=== PATIENT | male | born 1940 | race Caucasian/White ===

== ENCOUNTER 2020-08-13 17:41 | Inpatient (IN) | payer BC, MEDICARE ==
--- NOTE | 2020-08-13 17:59 | PDOC.HHP ---
Hospitalist HPI persistent cough History of Present Illness: Patient is a 80-year-old male with a past medical history of obstructive sleep apnea, [id number] diabetes mellitus, gout and BPH. He is a direct admit from [facility] where he was hospitalized since August 09 after he presented with cough and hypoxia. He has a recent diagnosis of COVID-19 dx on 06/05/2020. He was never hospitalized but did relatively well with outpatient therapy, which included steroid therapy and other regimen including Trelegy. He is not very specific on this point. He states that he does not have a formal diagnosis of COPD. He did well for the most part until recently. His symptoms improved except for persistent cough. He is reporting a cough which comes on few hours after a meal. He progressively started getting shortness of breath. He decided to go to [facility] on Aug 09 as his O2 saturation was persistently in the mid 80's. Work-up at [facility] revealed multifocal pneumonia. Sputum culture yielded an positive cocci. Pulmonary embolism was ruled out. He tested negative for COVID-19 this time. Due to lack of improvement, he was transferred here for pulmonary evaluation. ED Course: N/A Allergies/Adverse Reactions: Allergy/AdvReac Type Severity Reaction Status Date / Time No Known Drug Allergies Allergy Verified 08/13/20 18:08 Past History: PMHx: PSHx: FHx: Social: Hospitalist Exam General Appearance: awake alert General - other findings: Mild distress Eye: anicteric sclera ENT: normocephalic atraumatic ENT - other findings: Nasal cannula in place Neck: supple Heart: RRR, no murmur, no gallops, no rubs, normal peripheral pulses Respiratory: no wheezes, no ronchi Gastrointestinal: soft, non-tender, non-distended Extremities: no clubbing, no edema Neurological: cranial nerve grossly intact Psychiatric: normal affect, normal behavior Hospitalist H&P A/P (1) Acute hypoxemic respiratory failure Code(s): J96.01 - ACUTE RESPIRATORY FAILURE WITH HYPOXIA Status: Acute (2) Multifocal pneumonia Code(s): J18.9 - PNEUMONIA, UNSPECIFIED ORGANISM Status: Acute (3) Persistent cough for 3 weeks or longer Code(s): R05 - COUGH Status: Acute (4) Obstructive sleep apnea Code(s): G47.33 - OBSTRUCTIVE SLEEP APNEA (ADULT) (PEDIATRIC) Status: Acute (5) Type II diabetes mellitus Status: Acute (6) Gout Code(s): M10.9 - GOUT, UNSPECIFIED Status: Acute (7) BPH (benign prostatic hyperplasia) Code(s): N40.0 - BENIGN PROSTATIC HYPERPLASIA WITHOUT LOWER URINRY TRACT SYMP Status: Acute Plan: Assessment Mr. Hickey is a 80-year-old male with history of obstructive sleep apnea and a recent diagnosis of COVID-19 who presents as a direct admit from [facility] where he was hospitalized for persistent cough, and hypoxia. He is here for Pulmonary evaluation. CT of the chest showed diffuse infiltrate with no focal consolidations or suggestion of postobstructive suggestion of airway obstruction. Additionally, chart review revealed that he was seen in this ER back in 2011 for nasal congestion and persistent cough. Bronchitis was considered at the time. Acute hypoxemic respiratory failure Multifocal pneumonia Dysphagia Obstructive sleep apnea Type 2 diabetes mellitus PLAN: Admit inpatient with telemetry and continous pulse ox Supplemental O2 via NC Check for basic labs Follow up 2-D echo to assess for hypoxia Start levofloxacin along with DuoNebs Procalcitonin to guide abx de-escalation Pulmonary also consulted for persistent cough and hypoxia STRATEGIC PLANNING SPECIALIST to assess dysphagia and aspiration PPI for GI ppx Insulin sliding scale. Check for HbA1c DVT ppx with lovenox Will resume home meds once reconciled
[2020-08-13] MEDS ORDERED: Dextrose 5% in Water 1,000 ML IV PRN (18:19)
[2020-08-13] MEDS ORDERED: Dextrose 50% Abboject 50 ML SYRINGE SLOW IVP PRN (18:19)
[2020-08-13] MEDS ORDERED: Pantoprazole 40 MG VIAL IVP SCH (18:30)
[2020-08-13 19:38] LABS: #Lymphocytes 0.7 thou/uL (1.20-3.40); #Monocytes 0.4 thou/uL (0.11-0.59); #Neutrophils 9.3 thou/uL (1.40-6.50); %Basophils 0.1 % (0.0-1.0); %Eosinophils 0.2 % (0.0-10.0); %Lymphocytes 6.7 % (21.0-51.0); %Monocytes 3.9 % (0.0-10.0); %Neutrophils 89.1 % (42.0-75.0); Hemoglobin 10.6 g/dL (14.0-18.0); Mean Corpuscular HGB CONC 33.9 g/dL (32.0-36.0); Mean Corpuscular Hemoglobin 30.7 pg (27.0-31.0); Mean Corpuscular Volume 90.5 fL (78.0-98.0); Mean Platelet Volume 7.3 fL (7.4-10.4); Platelet Count 302 thou/uL (130-400); RBC Distribution Width 12.2 % (11.5-14.5); Red Blood Cell (RBC) Count 3.44 mill/uL (4.70-6.10); White Blood Cell (WBC) Count 10.4 thou/uL (4.8-10.8)
[2020-08-13 20:03] LABS: Lactic Acid 2.3 mmol/L (0.5-2.2)
[2020-08-13 20:06] LABS: Anion Gap 19 mmol/L (10-20); BUN (Urea Nitrogen) 20 mg/dL (8.4-25.7); Calc. Creatinine Clearance 78 mL/min (70-130); Carbon Dioxide 22 mmol/L (23-31); Chloride 98 mmol/L (98-107); Glucose 207 mg/dL (83-110); Magnesium 1.7 mg/dL (1.6-2.6); Phosphorus 3.6 mg/dL (2.3-4.7); Potassium 4.7 mmol/L (3.5-5.1); Sodium 134 mmol/L (136-145)
[2020-08-13] MEDS: Enoxaparin Sodium 40 MG/0.4 ML SYRINGE SC SCH (20:53)
[2020-08-13] MEDS ORDERED: HumaLOG 300 UNITS/3 ML VIAL SC PRN (21:09)
[2020-08-13] MEDS ORDERED: Temazepam 15 MG CAP PO SCH (21:30)
[2020-08-14 08:43] LABS: Lactic Acid 1.2 mmol/L (0.5-2.2)
[2020-08-14] MEDS: Aspirin 325 mg Enteric Coated Tablet PO SCH (09:07)
[2020-08-14] MEDS: Atorvastatin Calcium 40 MG TAB PO SCH (09:07)
[2020-08-14] MEDS: Tamsulosin HCl 0.4 MG CAP PO SCH (09:07)
[2020-08-14] MEDS: NIFEdipine XL 30 MG TAB PO SCH (09:07)
[2020-08-14] MEDS: Allopurinol 100 MG TAB PO SCH (09:07)
[2020-08-14] MEDS: Pantoprazole 40 MG VIAL IVP SCH (09:08)
--- NOTE | 2020-08-14 11:22 | PDOC.HOSPP ---
- Subjective Encounter Date: 08/14/20 Subjective: Acute events overnight. Patient still on supplemental oxygen via nasal cannula, currently at 4 L. He is getting easily winded with minimal exertion. However, no significant change since admission. - Objective Vital Signs & Weight: Vital Signs (12 hours) Temp Pulse Resp BP Pulse Ox 08/14/20 10:18 144/89 H 95 08/14/20 08:55 98.1 F 77 24 H 178/81 H 91 L 08/14/20 03:24 98.6 F 72 20 172/85 H 96 08/14/20 00:00 74 Weight Weight 201 lb I&O: 08/13/20 08/14/20 08/15/20 06:59 06:59 06:59 Intake Total 480 Output Total 600 Balance -120 Result Diagrams: 08/13/20 19:04 08/13/20 19:05 Additional Labs: Accuchecks 08/14/20 08/13/20 05:30 20:54 POC Glucose 88 195 H Hospitalist ROS - Medication Medications: Active Medications Generic Name Dose Route Start Last Admin Trade Name Misaelq PRN Reason Stop Dose Admin Allopurinol 100 mg 08/14/20 09:00 08/14/20 09:07 Allopurinol 100 Mg Tab PO 100 mg DAILY WILLIAMS Administration Aspirin 325 mg 08/14/20 09:00 08/14/20 09:07 Aspirin 325 Mg Enteric Coated Tablet PO 325 mg DAILY WILLIAMS Administration Atorvastatin Calcium 40 mg 08/14/20 09:00 08/14/20 09:07 Atorvastatin Calcium 40 Mg Tab PO 40 mg DAILY WILLIAMS Administration Enoxaparin Sodium 40 mg 08/13/20 21:00 08/13/20 20:53 Enoxaparin Sodium 40 Mg/0.4 Ml Syringe SC 40 mg 2100 WILLIAMS Administration Levofloxacin 750 mg/ Device 150 mls @ 100 mls/hr 08/13/20 20:00 08/13/20 20:54 IVPB 150 mls Q24HR WILLIAMS Administration Nifedipine 30 mg 08/14/20 09:00 08/14/20 09:07 Nifedipine Xl 30 Mg Tab PO 30 mg DAILY WILLIAMS Administration Pantoprazole Sodium 40 mg 08/14/20 09:00 08/14/20 09:08 Pantoprazole 40 Mg Vial IVP 40 mg DAILY WILLIAMS Administration Sodium Chloride 10 ml 08/14/20 09:00 08/14/20 09:09 Flush - Normal Saline 10 Ml Syringe IVF 10 ml Q12HR WILLIAMS Administration Tamsulosin HCl 0.4 mg 08/14/20 09:00 08/14/20 09:07 Tamsulosin Hcl 0.4 Mg Cap PO 0.4 mg DAILY WILLIAMS Administration Hospitalist Exam Vitals: Vital Signs (12 hours) Temp Pulse Resp BP Pulse Ox 08/14/20 10:18 144/89 H 95 08/14/20 08:55 98.1 F 77 24 H 178/81 H 91 L 08/14/20 03:24 98.6 F 72 20 172/85 H 96 08/14/20 00:00 74 Weight Weight 201 lb General Appearance: awake alert General - other findings: Mild respiratory distress Eye: anicteric sclera ENT: normocephalic atraumatic Neck: supple Respiratory: CTAB, no wheezes, no rales, no ronchi Gastrointestinal: soft, non-tender, non-distended, normal bowel sounds Extremities: no clubbing, no edema Neurological: cranial nerve grossly intact Psychiatric: normal affect, normal behavior Hosp A/P (1) Acute hypoxemic respiratory failure Code(s): J96.01 - ACUTE RESPIRATORY FAILURE WITH HYPOXIA Status: Acute (2) Multifocal pneumonia Code(s): J18.9 - PNEUMONIA, UNSPECIFIED ORGANISM Status: Acute (3) Persistent cough for 3 weeks or longer Code(s): R05 - COUGH Status: Acute (4) Obstructive sleep apnea Code(s): G47.33 - OBSTRUCTIVE SLEEP APNEA (ADULT) (PEDIATRIC) Status: Acute (5) Type II diabetes mellitus Status: Acute (6) Gout Code(s): M10.9 - GOUT, UNSPECIFIED Status: Acute (7) BPH (benign prostatic hyperplasia) Code(s): N40.0 - BENIGN PROSTATIC HYPERPLASIA WITHOUT LOWER URINRY TRACT SYMP Status: Acute - Plan Assessment Mr. Hickey is a 80-year-old male with history of obstructive sleep apnea and a recent diagnosis of COVID-19 who presents as a direct admit from [facility] where he was hospitalized for persistent cough, and hypoxia. He is here for Pulmonary evaluation. CT of the chest showed diffuse infiltrate with no focal consolidations or suggestion of postobstructive suggestion of airway obstruction. Additionally, chart review revealed that he was seen in this ER back in 2011 for nasal congestion and persistent cough. Bronchitis was considered at the time. Acute hypoxemic respiratory failure Multifocal pneumonia Dysphagia Obstructive sleep apnea Type 2 diabetes mellitus - A1c 7.0 PLAN: Continue supplemental O2 via NC Follow up 2-D echo to assess for alternative causes of hypoxia DC levofloxacin given negative procalcitonin Continue DuoNebs Pulmonary consulted for persistent cough and hypoxia SALES SUPPORT REP to assess dysphagia and aspiration PPI for GI ppx Insulin sliding scale. DVT ppx with lovenox
--- NOTE | 2020-08-14 12:50 | RAD ---
XR Chest 1 View Portable HISTORY: Shortness of breath. Positive Covid. COMPARISON: 07/20/2020 exam. FINDINGS: Heart size is enlarged. There are atherosclerotic changes of the aorta. Parenchymal lung ch anges appear slightly more prominent than on the prior examination although the difference is minimal and probably largely related to slightly different technique and inspiration. IMPRESSION: Essentially stable chest bilateral lung infiltrates aren't relatively stable given differ ences in technique.
[2020-08-14] MEDS: Temazepam 15 MG CAP PO SCH (20:09)
[2020-08-14] MEDS: Enoxaparin Sodium 40 MG/0.4 ML SYRINGE SC SCH (20:09)
[2020-08-15] MEDS: Benzonatate 100 MG CAP PO PRN ×2 (03:12→09:17)
--- NOTE | 2020-08-15 06:28 | CON ---
DATE OF CONSULTATION: HISTORY OF PRESENT ILLNESS: Mr. Hickey is a pleasant 80-year-old male, who has been over at [facility] for the past few days. He says he had COVID last year starting at the end of May and after he had recovered completely from COVID, started having issues with cough and shortness of breath. He has been imaged 3 times he says and has been told he has pneumonia each time. PAST MEDICAL HISTORY: Remarkable for; 1. Sleep apnea. 2. Diabetes. 3. Hypertension. 4. Lipid disorder. He says he has never had any cardiac issues. FAMILY HISTORY: Negative for lung disease in early age. SOCIAL HISTORY: He is employed at [employer], he is still working. REVIEW OF SYSTEMS: Otherwise negative. PHYSICAL EXAMINATION: GENERAL: He is in no distress. VITAL SIGNS: Pulse is 80, respiratory rate is 18. HEAD AND NECK: Unremarkable. LUNGS: Remarkable for diffuse crackles. HEART: Regular rhythm. S1 and S2 are normal. ABDOMEN: Soft and nontender. EXTREMITIES: Without clubbing, cyanosis, or edema. DIAGNOSTIC STUDIES: No images available to review since these were all done at [facility]. IMPRESSION: Interstitial lung disease of unclear etiology. It is unlikely that he has been infected by a bacterial organism for this period of time. He is not immunocompromised. We really need to review images that were done at the outside facility. We will order a chest x-ray, so I at least have that to look at. Hypersensitivity pneumonitis panel will be ordered. Fungal antibody panel will be ordered. Antineutrophil cytoplasmic antibody panel and TEVIN and a rheumatoid arthritis panel, although all of these will most likely be negative. We will follow. He does not appear acutely ill. Job ID: [id number]
[2020-08-15] MEDS: Allopurinol 100 MG TAB PO SCH (09:42)
[2020-08-15] MEDS: NIFEdipine XL 30 MG TAB PO SCH (09:42)
[2020-08-15] MEDS: Aspirin 325 mg Enteric Coated Tablet PO SCH (09:42)
[2020-08-15] MEDS: Atorvastatin Calcium 40 MG TAB PO SCH (09:43)
[2020-08-15] MEDS: Tamsulosin HCl 0.4 MG CAP PO SCH (09:43)
[2020-08-15] MEDS: methylPREDNISolone Sod Succ/PF 125 MG/2 ML VIAL IVP SCH (09:43)
[2020-08-15 09:45] LABS: INR-International Normal Ratio 1.3; Prothrombin Time 16.1 sec (12.0-14.7)
[2020-08-15] MEDS: Pantoprazole 40 MG VIAL IVP SCH (09:45)
--- NOTE | 2020-08-15 10:39 | CT ---
EXAM: CT Chest High Resolution PROVIDED CLINICAL HISTORY: Interstitial lung disease. Patient diagnosed with Covid pneumonia on June 07, 2020. Patient compl ains of chronic cough and shortness of breath. COMPARISON: None FINDINGS: There are groundglass densities seen throughout the lungs bilaterally greater on the right. There are chronic interstitial lung changes predominantly involving each lung base with associated bronchiectasis at each lung base and in the right middle lobe and to a lesser extent in the upper lob es. No consolidation or pleural effusion is identified. The heart is enlarged. Small pericardial effusion is present. Prominent vascular calcifications are s een in the coronary arteries as well as in the thoracic aorta. No enlarged lymph nodes are seen within the mediastinum on this nonenhanced CT scan exam. The visualized upper abdomen demonstrates calcification in the limited visualized gallbladder related to cholelithiasis. A 1.9 cm right adrenal nodule is present which does not demonstrate an attenuation coefficient compat ible with an adrenal adenoma on this examination. IMPRESSION: 1. Right adrenal nodule which cannot be characterized as an adrenal adenoma. CT scan abdomen with and without IV contrast including washout imaging is recommended following the adrenal mass protocol. MRI abdomen could also be performed for further characterization. 2. Groundglass densities within the lungs bilaterally greater on the right with associated chronic in terstitial lung changes and bronchiectasis. Findings could be sequela of chronic changes related to Covid pneumonia given patient's clinical history. No consolidation or pleural fluid is seen. 3. Cardiomegaly and trace pericardial effusion. 4. Extensive vascular calcifications. 5. Cholelithiasis.
--- NOTE | 2020-08-15 11:10 | PRG ---
DATE OF SERVICE: 08/15/2020 SUBJECTIVE: Mr. Hickey is clinically stable. OBJECTIVE: VITAL SIGNS: He is still mildly tachypneic at rest with respiratory rate in the low 20s. He is afebrile. Heart rate in 80s, oximetry is 96% on 4 L. LUNGS: Still remarkable for crackles. HEART: Regular rate and rhythm. ABDOMEN: Soft. IMPRESSION AND PLAN: Interstitial lung disease of unclear etiology. The [facility] films have not been loaded into the [employer] system, so I cannot view these. The disc is not on the unit. I will order a high-resolution CT of his chest and perhaps we can determine whether or not we need a lung biopsy. Hopefully, we will not. I did start him on steroids after his blood work today. Job ID: [id number]
[2020-08-15] MEDS: HumaLOG 300 UNITS/3 ML VIAL SC PRN ×2 (11:33→17:55)
--- NOTE | 2020-08-15 12:03 | PQF ---
Dear Dr. Alvarez Date: 08/15/20 Please exercise your independent, professional judgment in responding to the clarification form. Clinical indicators are provided on the bottom of this form for your review. Please check appropriate box(es): [ ] Aspiration Pneumonia [ ] Empirically treating Gram Negative Pneumonia [ ] Simple Pneumonia [ X ] Pneumonia of unknown etiology [ ] Other diagnosis [ ] Unable to determine In addition, please specify: Present on Admission (POA): [ ] Yes [ ] No [ ] Unable to determine For continuity of documentation, please document condition throughout progress notes and discharge summary. Thank You. To be completed by CDI/Coding staff for physician review: CLINICAL INDICATORS - SIGNS / SYMPTOMS / LABS / RESULTS AND LOCATION IN MR H&P ([facility]): "HE IS REPORTING A COUGH WHICH COMES ON FEW HOURS AFTER A MEAL." CONSULTATION NOTE ([facility]) 08/14: "INTERSTITIAL LUNG DISEASE OF UNCLEAR ETIOLOGY" CHEST XRAY 08/14: "BILATERAL LUNG INFILTRATES AREN'T RELATIVELY STABLE GIVEN DIFFERENCES IN TECHNIQUE." RISK FACTORS / RESULTS AND LOCATION IN MR ACUTE RESPIRATORY FAILURE MULTIFOCAL PNEUMONIA PERSISTENT COUGH X 3 WEEKS OR LONGER (ST ASSESMENT 08/14) "SPUTUM YIELDED A POSITIVE COCCI" [place] [facility] [place] AT [facility] (H&P) ASSESSMENT: ORAL PHASE DEFICITS: "MILD FUNCTIONAL IMPAIRMENT" PHARYNGEAL PHASE: "MILD FUNCTIONAL IMPAIRMENT" TREATMENTS / RESULTS AND LOCATION IN MR RECOMMENDATIONS PER ST (IE, SIT FULLY UPRIGHT, REMAIN SITTING 30 MINUTES AFTER A MEAL, SMALL BITES AND SIPS, ALTERNATE BITES, AND SIPS, SLOW PACING--SEE ST NOTE 08/14) NURSING TO MONITOR FOR S/S OF COUGHING/ASPIRATION CONTINUOUS PULSE OX (H&P) SUPPLEMENTAL OXYGEN (H&P) DUNEBS (H&P) LEVAQUIN (08/13-PRESENT) SOLUMEDROL ((08/15-PRESENT) CDS Signature: Sangeetha Callejas RN Phone #: [phone] Date: 08/15/20 This is a permanent part of the Medical Record [facility]
--- NOTE | 2020-08-15 15:47 | PDOC.HOSPP ---
- Subjective Encounter Date: 08/15/20 Subjective: No acute events overnight. Patient is on 4 L of oxygen via nasal cannula and is comfortable on these settings. - Objective Vital Signs & Weight: Vital Signs (12 hours) Temp Pulse Resp BP Pulse Ox 08/15/20 15:41 96 08/15/20 15:02 97.8 F 99 24 H 123/74 96 08/15/20 11:27 98.1 F 100 24 H 143/83 H 95 08/15/20 08:08 98.1 F 87 18 128/74 96 Weight Weight 201 lb I&O: 08/14/20 08/15/20 08/16/20 06:59 06:59 06:59 Intake Total 480 1400 Output Total 600 1525 Balance -120 -125 Result Diagrams: 08/13/20 19:04 08/13/20 19:05 Additional Labs: Accuchecks 08/15/20 08/15/20 08/14/20 10:31 05:24 20:41 POC Glucose 160 H 109 H 159 H Hospitalist ROS - Medication Medications: Active Medications Generic Name Dose Route Start Last Admin Trade Name Freq PRN Reason Stop Dose Admin Allopurinol 100 mg 08/14/20 09:00 08/15/20 09:42 Allopurinol 100 Mg Tab PO 100 mg DAILY WILLIAMS Administration Aspirin 325 mg 08/14/20 09:00 08/15/20 09:42 Aspirin 325 Mg Enteric Coated Tablet PO 325 mg DAILY WILLIAMS Administration Atorvastatin Calcium 40 mg 08/14/20 09:00 08/15/20 09:43 Atorvastatin Calcium 40 Mg Tab PO 40 mg DAILY WILLIAMS Administration Benzonatate 100 mg 08/15/20 02:38 08/15/20 09:17 Benzonatate 100 Mg Cap PO 100 mg TIDPRN PRN Administration Cough Enoxaparin Sodium 40 mg 08/13/20 21:00 08/14/20 20:09 Enoxaparin Sodium 40 Mg/0.4 Ml Syringe SC 40 mg 2100 WILLIAMS Administration Levofloxacin 750 mg/ Device 150 mls @ 100 mls/hr 08/13/20 20:00 08/14/20 20:09 IVPB 150 mls Q24HR WILLIAMS Administration Insulin Human Lispro 0 units 08/13/20 18:19 08/15/20 11:33 Humalog 300 Units/3 Ml Vial SC 2 unit .MILD SLIDING SCALE PRN Administration Mild Correctional Scale Methylprednisolone Sodium Succinate 80 mg 08/15/20 09:00 08/15/20 09:43 Methylprednisolone Sod Succ/Pf 125 Mg/2 Ml Vial IVP 80 mg DAILY WILLIAMS Administration Nifedipine 30 mg 08/14/20 09:00 08/15/20 09:42 Nifedipine Xl 30 Mg Tab PO 30 mg DAILY WILLIAMS Administration Pantoprazole Sodium 40 mg 08/14/20 09:00 08/15/20 09:45 Pantoprazole 40 Mg Vial IVP 40 mg DAILY WILLIAMS Administration Sodium Chloride 10 ml 08/14/20 09:00 08/15/20 09:43 Flush - Normal Saline 10 Ml Syringe IVF 10 ml Q12HR WILLIAMS Administration Tamsulosin HCl 0.4 mg 08/14/20 09:00 08/15/20 09:43 Tamsulosin Hcl 0.4 Mg Cap PO 0.4 mg DAILY WILLIAMS Administration Temazepam 30 mg 08/14/20 21:00 08/14/20 20:09 Temazepam 15 Mg Cap PO 30 mg HS WILLIAMS Administration Hospitalist Exam Vitals: Vital Signs (12 hours) Temp Pulse Resp BP Pulse Ox 08/15/20 15:41 96 08/15/20 15:02 97.8 F 99 24 H 123/74 96 08/15/20 11:27 98.1 F 100 24 H 143/83 H 95 08/15/20 08:08 98.1 F 87 18 128/74 96 Weight Weight 201 lb General Appearance: NAD, awake alert Eye: anicteric sclera ENT: normocephalic atraumatic Neck: supple Heart: RRR, no murmur, no gallops, no rubs Respiratory: no wheezes, no ronchi Gastrointestinal: soft, non-tender, non-distended Extremities: no clubbing, no edema Neurological: cranial nerve grossly intact Musculoskeletal: normal tone, normal strength Psychiatric: normal affect, normal behavior Hosp A/P (1) Acute hypoxemic respiratory failure Code(s): J96.01 - ACUTE RESPIRATORY FAILURE WITH HYPOXIA Status: Acute (2) Multifocal pneumonia Code(s): J18.9 - PNEUMONIA, UNSPECIFIED ORGANISM Status: Acute (3) Persistent cough for 3 weeks or longer Code(s): R05 - COUGH Status: Acute (4) Obstructive sleep apnea Code(s): G47.33 - OBSTRUCTIVE SLEEP APNEA (ADULT) (PEDIATRIC) Status: Acute (5) Type II diabetes mellitus Status: Acute (6) Gout Code(s): M10.9 - GOUT, UNSPECIFIED Status: Acute (7) BPH (benign prostatic hyperplasia) Code(s): N40.0 - BENIGN PROSTATIC HYPERPLASIA WITHOUT LOWER URINRY TRACT SYMP Status: Acute - Plan Assessment Mr. Hickey is a 80-year-old male with history of obstructive sleep apnea and a recent diagnosis of COVID-19 who presented as a direct admit from [facility] where he was hospitalized for persistent cough, and hypoxia. He is here for Pulmonary evaluation. CT of the chest showed diffuse infiltrate with no focal consolidations or suggestion of postobstructive suggestion of airway obstruction. Fungal and rheumatologic work-up is underway as initiated by pulmonary. ESR was elevated at 88 Acute hypoxemic respiratory failure Multifocal pneumonia Dysphagia Obstructive sleep apnea Type 2 diabetes mellitus - A1c 7.0 PLAN: Started on steroids per pulmonary Follow-up high-resolution CT to assess if a biopsy will be needed Continue supplemental O2 via NC Follow-up ANCA, TEVIN and rheumatoid factor ordered by pulmonary Continue DuoNebs as needed HELP DESK CONSULTANT recommends outpatient modified barium swallow studies dysphagia PPI for GI ppx Insulin sliding scale. DVT ppx with lovenox
[2020-08-15] MEDS: Enoxaparin Sodium 40 MG/0.4 ML SYRINGE SC SCH (20:00)
[2020-08-15] MEDS: Temazepam 15 MG CAP PO SCH (20:00)
[2020-08-16] MEDS: Allopurinol 100 MG TAB PO SCH (09:12)
[2020-08-16] MEDS: Aspirin 325 mg Enteric Coated Tablet PO SCH (09:12)
[2020-08-16] MEDS: Atorvastatin Calcium 40 MG TAB PO SCH (09:12)
[2020-08-16] MEDS: NIFEdipine XL 30 MG TAB PO SCH (09:12)
[2020-08-16] MEDS: methylPREDNISolone Sod Succ/PF 125 MG/2 ML VIAL IVP SCH (09:13)
[2020-08-16] MEDS: Pantoprazole 40 MG VIAL IVP SCH (09:13)
[2020-08-16] MEDS: Tamsulosin HCl 0.4 MG CAP PO SCH (09:14)
--- NOTE | 2020-08-16 13:24 | PRG ---
DATE OF SERVICE: 08/16/2020 Mr. Hickey was interviewed for approximately 20 minutes again today. Reviewing his events, he recovered from his COVID infection and then about a week later, he started with a cough. I reviewed his high-resolution CT from yesterday. Given that he has never had any respiratory symptoms in his life, my best guess is that what we are dealing with clinically and radiographically is a late phase COVID pneumonitis/inflammatory reaction. He is currently afebrile. He says he feels 100% better than he felt when he arrived. OBJECTIVE: LUNGS: Still remarkable for crackles. HEART: Regular rate and rhythm. ABDOMEN: Soft. There is no new lab other than blood glucoses, which are still under control for the most part even though he is on IV steroids. I really cannot see recommending bronchoscopy lavage or lung biopsies or even a surgical lung biopsy at this point given the clinical history. I will switch him to prophylactic dose Eliquis. We will keep him on IV steroids again for now. Hopefully, his gas exchange will continue to improve with his clinical improvement. We may end up having to prescribe oxygen for the house as well as get him a nebulizer. He was getting nebulized treatments at [facility] and said it helped relax him and he felt like he was breathing better after that, so we will start that. He does have some bronchiectasis on the CAT scan and in theory nebulized therapy may help mobilize secretions. I would anticipate that he will need oxygen, it might be reasonable to start setting this up. Job ID: [id number]
--- NOTE | 2020-08-16 13:40 | PDOC.HOSPP ---
- Subjective Encounter Date: 08/16/20 Subjective: No acute events overnight. Yoli Perlradha started by pulmonary team for cough - Objective Vital Signs & Weight: Vital Signs (12 hours) Temp Pulse Resp BP Pulse Ox 08/16/20 12:46 98.5 F 100 24 H 116/74 91 L 08/16/20 09:12 91 08/16/20 07:40 98.4 F 91 25 H 125/73 94 L 08/16/20 04:32 98.4 F 82 19 117/67 96 Weight Weight 201 lb I&O: 08/15/20 08/16/20 08/17/20 06:59 06:59 06:59 Intake Total 1400 240 Output Total 1525 750 Balance -125 -510 Result Diagrams: 08/13/20 19:04 08/13/20 19:05 Additional Labs: Accuchecks 08/16/20 08/16/20 08/15/20 11:03 05:26 20:45 POC Glucose 179 H 151 H 243 H 08/15/20 16:39 POC Glucose 185 H Hospitalist ROS - Medication Medications: Active Medications Generic Name Dose Route Start Last Admin Trade Name Freq PRN Reason Stop Dose Admin Allopurinol 100 mg 08/14/20 09:00 08/16/20 09:12 Allopurinol 100 Mg Tab PO 100 mg DAILY WILLIAMS Administration Aspirin 325 mg 08/14/20 09:00 08/16/20 09:12 Aspirin 325 Mg Enteric Coated Tablet PO 325 mg DAILY WILLIAMS Administration Atorvastatin Calcium 40 mg 08/14/20 09:00 08/16/20 09:12 Atorvastatin Calcium 40 Mg Tab PO 40 mg DAILY WILLIAMS Administration Levofloxacin 750 mg/ Device 150 mls @ 100 mls/hr 08/13/20 20:00 08/15/20 19:59 IVPB 150 mls Q24HR WILLIAMS Administration Insulin Human Lispro 0 units 08/13/20 18:19 08/15/20 17:55 Humalog 300 Units/3 Ml Vial SC 2 unit .MILD SLIDING SCALE PRN Administration Mild Correctional Scale Methylprednisolone Sodium Succinate 80 mg 08/15/20 09:00 08/16/20 09:13 Methylprednisolone Sod Succ/Pf 125 Mg/2 Ml Vial IVP 80 mg DAILY WILLIAMS Administration Nifedipine 30 mg 08/14/20 09:00 08/16/20 09:12 Nifedipine Xl 30 Mg Tab PO 30 mg DAILY WILLIAMS Administration Pantoprazole Sodium 40 mg 08/14/20 09:00 08/16/20 09:13 Pantoprazole 40 Mg Vial IVP 40 mg DAILY WILLIAMS Administration Sodium Chloride 10 ml 08/14/20 09:00 08/16/20 09:15 Flush - Normal Saline 10 Ml Syringe IVF 10 ml Q12HR WILLIAMS Administration Tamsulosin HCl 0.4 mg 08/14/20 09:00 08/16/20 09:14 Tamsulosin Hcl 0.4 Mg Cap PO 0.4 mg DAILY WILLIAMS Administration Temazepam 30 mg 08/14/20 21:00 08/15/20 20:00 Temazepam 15 Mg Cap PO 30 mg HS WILLIAMS Administration Hospitalist Exam Vitals: Vital Signs (12 hours) Temp Pulse Resp BP Pulse Ox 08/16/20 12:46 98.5 F 100 24 H 116/74 91 L 08/16/20 09:12 91 08/16/20 07:40 98.4 F 91 25 H 125/73 94 L 08/16/20 04:32 98.4 F 82 19 117/67 96 Weight Weight 201 lb General Appearance: NAD, awake alert Eye: anicteric sclera ENT: normocephalic atraumatic Neck: supple Heart: RRR, no murmur, no gallops, no rubs Respiratory: CTAB, no wheezes, no rales, no ronchi Gastrointestinal: soft, non-tender, non-distended Extremities: no clubbing, no edema Neurological: cranial nerve grossly intact Psychiatric: normal affect, normal behavior Hosp A/P (1) Acute hypoxemic respiratory failure Code(s): J96.01 - ACUTE RESPIRATORY FAILURE WITH HYPOXIA Status: Acute (2) Multifocal pneumonia Code(s): J18.9 - PNEUMONIA, UNSPECIFIED ORGANISM Status: Acute (3) Persistent cough for 3 weeks or longer Code(s): R05 - COUGH Status: Acute (4) Obstructive sleep apnea Code(s): G47.33 - OBSTRUCTIVE SLEEP APNEA (ADULT) (PEDIATRIC) Status: Acute (5) Type II diabetes mellitus Status: Acute (6) Gout Code(s): M10.9 - GOUT, UNSPECIFIED Status: Acute (7) BPH (benign prostatic hyperplasia) Code(s): N40.0 - BENIGN PROSTATIC HYPERPLASIA WITHOUT LOWER URINRY TRACT SYMP Status: Acute - Plan Assessment Mr. Hickey is a 80-year-old male with history of obstructive sleep apnea and a recent diagnosis of COVID-19 who presented as a direct admit from [facility] where he was hospitalized for persistent cough, and hypoxia. They ruled out pulmonary embolism during that hospitalization. 2D echo done here within normal limits. He has no signs of congestive heart failure. He was transferred for pulmonary evaluation. CT of the chest showed diffuse infiltrate with no focal consolidations or suggestion of postobstructive suggestion of airway obstruction. Fungal and rheumatologic work-up is underway as initiated by pulmonary. ESR was elevated at 88. Started on a steroid by pulmonary. CT chest was unchanged from the one obtained at [facility]. 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 DVT ppx with lovenox
[2020-08-16] MEDS: Benzonatate 100 MG CAP PO SCH ×2 (15:12→21:22)
[2020-08-16] MEDS: HumaLOG 300 UNITS/3 ML VIAL SC PRN (17:53)
[2020-08-16] MEDS: Temazepam 15 MG CAP PO SCH (21:22)
[2020-08-16] MEDS: Apixaban 2.5 MG TAB PO SCH (21:22)
--- NOTE | 2020-08-16 21:26 | EKG ---
Test Reason : Blood Pressure : / mmHG Vent. Rate : 106 BPM Atrial Rate : 106 BPM P-R Int : 154 ms QRS Dur : 090 ms QT Int : 366 ms P-R-T Axes : 054 -37 029 degrees QTc Int : 486 ms Sinus tachycardia with Premature atrial complexes Left axis deviation Abnormal ECG No previous ECGs available Confirmed by ALEX MATTA, DR. Tian ([id number]) on 08/16/2020 9:26:01 PM Referred By: FREEDOM Confirmed By:DR. Asmita JOHNSON MD
[2020-08-17 04:58] VITALS: BMI 26.6
[2020-08-17] MEDS: HumaLOG 300 UNITS/3 ML VIAL SC PRN ×3 (06:33→17:04)
[2020-08-17] MEDS: Benzonatate 100 MG CAP PO SCH ×2 (08:52→16:06)
[2020-08-17] MEDS: NIFEdipine XL 30 MG TAB PO SCH (08:52)
[2020-08-17] MEDS: Tamsulosin HCl 0.4 MG CAP PO SCH (08:52)
[2020-08-17] MEDS: Aspirin 325 mg Enteric Coated Tablet PO SCH (08:52)
[2020-08-17] MEDS: Pantoprazole 40 MG VIAL IVP SCH (08:55)
[2020-08-17] MEDS: Allopurinol 100 MG TAB PO SCH (08:55)
[2020-08-17] MEDS: methylPREDNISolone Sod Succ/PF 125 MG/2 ML VIAL IVP SCH (08:55)
[2020-08-17] MEDS: Apixaban 2.5 MG TAB PO SCH (08:55)
[2020-08-17] MEDS: Atorvastatin Calcium 40 MG TAB PO SCH (08:55)
[2020-08-17] MEDS ORDERED: Docusate 100 MG CAP PO SCH (09:00)
[2020-08-17] MEDS ORDERED: Polyethylene Glycol 3350 17 GM Packet PO SCH (09:00)
--- NOTE | 2020-08-17 09:28 | PRG ---
DATE OF SERVICE: 08/17/2020 SUBJECTIVE: Mr. Hickey has done well overnight. He moved around the room a little bit. He has been walking in the son. OBJECTIVE: VITAL SIGNS: He is afebrile, heart rate 82, respiratory rate 18, oximetry is 98% on 3 L. We need to continue to try to wean him. LUNGS: Remarkable for actually improved crackles at his right base. HEART: Regular rhythm. ABDOMEN: Soft. EXTREMITIES: Without edema. LABORATORY DATA: No new lab. 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 He appears to be improving with steroids. Most of the lab tests were send out. He could in theory be discharged home as long as he has oxygen at house and a nebulizer. I recommended 40 of prednisone for a week and then he can cut to 30 mg of prednisone for a week and then follow up with me in 2 weeks. I can slowly taper him from there. Job ID: [id number]
[2020-08-17 14:55] LABS: ANA Symphony (Qualitative) Negative (Negative); ANA Symphony (Quantitative) 0.6 Ratio (< 0.7 Negative); CCP IgG Antibody 1.7 EliAU/mL (<7 Negative); EliA RAS New Method **** NEW METHOD ****; EliA Thy New Method **** NEW METHOD ****; EliA Vaculitis New Method **** NEW METHOD ****; Mitochondrial Ab 1.7 U/mL (<4 Negative); Rheumatoid Factor IgA Antibody 7.7 IU/mL (<14 Negative); Rheumatoid Factor IgM Antibody Less than 0.5 IU/mL (<3.5 Negative); Thyroid Peroxidase IgG Ab 5.3 IU/mL (<25 Normal); dsDNA IgG Antibody 1.5 IU/mL (<10 Negative)
--- NOTE | 2020-08-17 15:19 | PDOC.HOSPP ---
- Subjective Encounter Date: 08/17/20 Subjective: No acute events overnight. Still on 3 L of oxygen via nasal cannula. Is more comfortable and feeling better today. - Objective Vital Signs & Weight: Vital Signs (12 hours) Temp Pulse Resp BP Pulse Ox 08/17/20 14:38 70 16 97 08/17/20 11:09 97.9 F 102 H 22 H 118/72 95 08/17/20 10:59 78 16 98 08/17/20 07:58 98.0 F 82 18 120/79 98 08/17/20 04:00 97.6 F 74 20 113/59 L 97 Weight Weight 190 lb 11.2 oz I&O: 08/16/20 08/17/20 08/18/20 06:59 06:59 06:59 Intake Total 240 2270 Output Total 750 1000 Balance -510 1270 Result Diagrams: 08/13/20 19:04 08/13/20 19:05 Additional Labs: Accuchecks 08/17/20 08/17/20 08/16/20 11:00 05:46 20:27 POC Glucose 189 H 165 H 241 H 08/16/20 16:28 POC Glucose 239 H Hospitalist ROS - Medication Medications: Active Medications Generic Name Dose Route Start Last Admin Trade Name Freq PRN Reason Stop Dose Admin Albuterol/Ipratropium 3 ml 08/17/20 11:00 08/17/20 14:38 Ipratropium/Albuterol Sulfate 3 Ml Neb NEB 3 ml [id number] WILLIAMS Administration Allopurinol 100 mg 08/14/20 09:00 08/17/20 08:55 Allopurinol 100 Mg Tab PO 100 mg DAILY WILLIAMS Administration Apixaban 2.5 mg 08/16/20 21:00 08/17/20 08:55 Apixaban 2.5 Mg Tab PO 2.5 mg BID WILLIAMS Administration Aspirin 325 mg 08/14/20 09:00 08/17/20 08:52 Aspirin 325 Mg Enteric Coated Tablet PO 325 mg DAILY WILLIAMS Administration Atorvastatin Calcium 40 mg 08/14/20 09:00 08/17/20 08:55 Atorvastatin Calcium 40 Mg Tab PO 40 mg DAILY WILLIAMS Administration Benzonatate 200 mg 08/16/20 15:00 08/17/20 08:52 Benzonatate 100 Mg Cap PO 200 mg TID WILLIAMS Administration Docusate Sodium 100 mg 08/17/20 09:00 08/17/20 09:10 Docusate 100 Mg Cap PO 100 mg BID WILLIAMS Administration Levofloxacin 750 mg/ Device 150 mls @ 100 mls/hr 08/13/20 20:00 08/16/20 21:23 IVPB 150 mls Q24HR WILLIAMS Administration Insulin Human Lispro 0 units 08/13/20 18:19 08/17/20 11:33 Humalog 300 Units/3 Ml Vial SC 2 unit .MILD SLIDING SCALE PRN Administration Mild Correctional Scale Nifedipine 30 mg 08/14/20 09:00 08/17/20 08:52 Nifedipine Xl 30 Mg Tab PO 30 mg DAILY WILLIAMS Administration Pantoprazole Sodium 40 mg 08/14/20 09:00 08/17/20 08:55 Pantoprazole 40 Mg Vial IVP 40 mg DAILY WILLIAMS Administration Polyethylene Glycol 17 gm 08/17/20 09:00 08/17/20 09:10 Polyethylene Glycol 3350 17 Gm Packet PO 17 gm DAILY WILLIAMS Administration Sodium Chloride 10 ml 08/14/20 09:00 08/17/20 09:11 Flush - Normal Saline 10 Ml Syringe IVF 10 ml Q12HR WILLIAMS Administration Tamsulosin HCl 0.4 mg 08/14/20 09:00 08/17/20 08:52 Tamsulosin Hcl 0.4 Mg Cap PO 0.4 mg DAILY WILLIAMS Administration Temazepam 30 mg 08/14/20 21:00 08/16/20 21:22 Temazepam 15 Mg Cap PO 30 mg HS WILLIAMS Administration Hospitalist Exam Vitals: Vital Signs (12 hours) Temp Pulse Resp BP Pulse Ox 08/17/20 14:38 70 16 97 08/17/20 11:09 97.9 F 102 H 22 H 118/72 95 08/17/20 10:59 78 16 98 08/17/20 07:58 98.0 F 82 18 120/79 98 08/17/20 04:00 97.6 F 74 20 113/59 L 97 Weight Weight 190 lb 11.2 oz General - other findings: In mild respiratory distress Eye: anicteric sclera ENT: normocephalic atraumatic Heart: RRR, no murmur, no gallops, no rubs Respiratory: no wheezes, no ronchi Gastrointestinal: soft, non-tender, non-distended Extremities: no clubbing, no edema Neurological: cranial nerve grossly intact Psychiatric: normal affect, normal behavior Hosp A/P (1) Acute hypoxemic respiratory failure Code(s): J96.01 - ACUTE RESPIRATORY FAILURE WITH HYPOXIA Status: Acute (2) Multifocal pneumonia Code(s): J18.9 - PNEUMONIA, UNSPECIFIED ORGANISM Status: Acute (3) Persistent cough for 3 weeks or longer Code(s): R05 - COUGH Status: Acute (4) Obstructive sleep apnea Code(s): G47.33 - OBSTRUCTIVE SLEEP APNEA (ADULT) (PEDIATRIC) Status: Acute (5) Type II diabetes mellitus Status: Acute (6) Gout Code(s): M10.9 - GOUT, UNSPECIFIED Status: Acute (7) BPH (benign prostatic hyperplasia) Code(s): N40.0 - BENIGN PROSTATIC HYPERPLASIA WITHOUT LOWER URINRY TRACT SYMP Status: Acute - Plan Assessment Mr. Hickey is a 80-year-old male with history of obstructive sleep apnea and COVID-19 who presented as a direct admit from [facility] where he was hospitalized for persistent cough, and hypoxia. Patient was diagnosed with COVID-19 back in May 2020 and was treated on an outpatient basis. He did well until recently when he became hypoxic and was unable to get his O2 sats above 90. He presented to [facility] where he was hospitalized for several days. They ruled out pulmonary embolism during that hospitalization. 2D echo done here within normal limits. He had no signs of congestive heart failure. Due to persistent cough and hypoxia, he was transferred to [facility] for pulmonary evaluation. CT of the chest showed diffuse infiltrate with no focal consolidations or suggestion of postobstructive suggestion of airway obstruction. Fungal and rheumatologic work-up is underway as initiated by pulmonary. ESR was elevated at 88. Started on a steroid by pulmonary. 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 He will need home oxygen on discharge. Acute hypoxemic respiratory failure Multifocal pneumonia Dysphagia Obstructive sleep apnea Type 2 diabetes mellitus - A1c 7.0 PLAN: I will place a case management consult for home health for home O2. 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 DVT ppx with lovenox
[2020-08-17 15:43] VITALS: BP 131/60; TEMP 98
--- NOTE | 2020-08-17 18:10 | PDOC.DS.DS ---
Provider Date of Admission: 08/13/20 17:41 Admitting Provider: Prince Brigid Alvarez MD Consultations: Pulmonary Primary Care Physician: Prince Brigid Alvarez MD Course Hospital Course: Mr. Hickey is a 80-year-old male with history of obstructive sleep apnea and COVID-19 who presented as a direct admit from [facility] where he was hospitalized for persistent cough, and hypoxia. Patient was diagnosed with COVID-19 back in May 2020 and was treated on an outpatient basis. He did well until recently when he became hypoxic and was unable to get his O2 sats above 90. He presented to [facility] where he was hospitalized for several days. They ruled out pulmonary embolism during that hospitalization. 2D echo done here within normal limits. He had no signs of congestive heart failure. Due to persistent cough and hypoxia, he was transferred to [facility] for pulmonary evaluation. CT of the chest showed diffuse infiltrate with no focal consolidations or suggestion of postobstructive suggestion of airway obstruction. Fungal and rheumatologic work-up is underway as initiated by pulmonary. ESR was elevated at 88. Started on a steroid by pulmonary. He will be discharged on 7-day course of prednisone 40 mg daily. He should follow-up with pulmonology in 1 week at which point he can be tapered. 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 Pulmonary attribute this to diffuse alveolar damage. Patient will also need to follow-up outpatient with FUEL CELL ENGINEER for modified barium swallow study. Lab Results: 08/13/20 19:04 08/13/20 19:05 Abnormal Lab Results - Last 48 hrs 08/15/20 07:40: Complement C4 62.20 H Vitals: Vital Signs (12 hours) Temp Pulse Resp BP Pulse Ox 08/17/20 15:42 98.0 F 122 H 18 131/60 95 08/17/20 14:38 70 16 97 08/17/20 11:09 97.9 F 102 H 22 H 118/72 95 08/17/20 10:59 78 16 98 08/17/20 07:58 98.0 F 82 18 120/79 98 Weight Weight 190 lb 11.2 oz Physical Exam: The patient was seen and examined on the day of discharge. Problem (1) Acute hypoxemic respiratory failure Code(s): J96.01 - ACUTE RESPIRATORY FAILURE WITH HYPOXIA Status: Acute (2) Multifocal pneumonia Code(s): J18.9 - PNEUMONIA, UNSPECIFIED ORGANISM Status: Acute (3) Persistent cough for 3 weeks or longer Code(s): R05 - COUGH Status: Acute (4) Obstructive sleep apnea Code(s): G47.33 - OBSTRUCTIVE SLEEP APNEA (ADULT) (PEDIATRIC) Status: Acute (5) Type II diabetes mellitus Status: Acute (6) Gout Code(s): M10.9 - GOUT, UNSPECIFIED Status: Acute (7) BPH (benign prostatic hyperplasia) Code(s): N40.0 - BENIGN PROSTATIC HYPERPLASIA WITHOUT LOWER URINRY TRACT SYMP Status: Acute Plan Prescriptions: Apixaban [Eliquis] 2.5 mg PO BID #60 tab predniSONE 40 mg PO QAM-WM #7 tab NIFEdipine [Procardia XL] 30 mg PO DAILY #30 tab Benzonatate [Tessalon] 200 mg PO TID #30 cap Home Medications: Medication Instructions Recorded Confirmed Type Allopurinol [Zyloprim] 100 mg PO DAILY 08/13/20 08/13/20 History Aspirin [Ecotrin] 325 mg PO DAILY 08/13/20 08/13/20 History Atorvastatin Calcium [Lipitor] 40 mg PO DAILY 08/13/20 08/13/20 History Tamsulosin HCl [Flomax] 0.4 mg PO DAILY 08/13/20 08/13/20 History Temazepam 30 mg PO HS 08/13/20 08/13/20 History metFORMIN [Glucophage] 1,000 mg PO QAM-WM 08/13/20 08/13/20 History Apixaban [Eliquis] 2.5 mg PO BID #60 tab 08/17/20 Rx Benzonatate [Tessalon] 200 mg PO TID #30 cap 08/17/20 Rx Ipratropium/Albuterol Sulfate 3 ml NEB [id number] neb 08/17/20 Rx [DuoNeb] NIFEdipine [Procardia XL] 30 mg PO DAILY #30 tab 08/17/20 Rx predniSONE 40 mg PO QAM-WM #7 tab 08/17/20 Rx Allergies: No Known Drug Allergies Allergy (Verified 08/13/20 18:08) Referrals: Prince Brigid Alvarez MD [Primary Care Provider] - Disposition: HOME Quality CORE MEASURES:: N/A
[2020-08-18] MEDS ORDERED: predniSONE 20 MG TAB PO SCH (08:00)
[2020-08-20 14:36] LABS: Cytoplasmic (C-ANCA) <1:20 titer (Neg:<1:20); Myeloperoxidase AutoAbs <9.0 U/mL (0.0-9.0); Perinuclear (P-ANCA) <1:20 titer (Neg:<1:20); Proteinase-3 AutoAbs Less than 3.5 U/mL (0.0-3.5)
[2020-08-21 19:36] LABS: A. flavus Negative (Neg:<1:1); A. fumigatus Negative (Neg:<1:1); A. niger Negative (Neg:<1:1); Blastomyces AB Negative (Neg:<1:1)
[2020-08-22 12:11] LABS: Aspergillus fumigatus Negative (Negative); Aureobasidium pullalans IgG Negative (Negative); Micropolyspora faeni Negative (Negative); Pigeon Droppings IgG Negative (Negative); T sacchari Negative (Negative); T vulgaris Negative (Negative)
== END 2020-08-17 19:15 | disposition home or self-care (01) | DRG 193 ==
LOC: 2NO 17:41
PROVIDERS: ADMIT Internal Medicine; ATTEND Internal Medicine
DX: J18.9 Pneumonia, unspecified organism (principal); J96.01 Acute respiratory failure with hypoxia; U07.1 COVID-19; J84.9 Interstitial pulmonary disease, unspecified; Z20.822 Contact with and (suspected) exposure to COVID-19; G47.33 Obstructive sleep apnea (adult) (pediatric); E11.9 Type 2 diabetes mellitus without complications; M10.9 Gout, unspecified; N40.0 Benign prostatic hyperplasia without lower urinary tract symptoms; R13.10 Dysphagia, unspecified; Z79.82 Long term (current) use of aspirin; Z79.84 Long term (current) use of oral hypoglycemic drugs; Z79.899 Other long term (current) drug therapy
CPT/HCPCS: 36415; 36416; 71045; 71250; 80048; 83010; 83036; 83516; 83520; 83605; 83615; 83735; 84100; 84145; 85007; 85025; 85027; 85046; 85610; 85652; 85730; 86038; 86160; 86200; 86225; 86256; 86331; 86376; 86602; 86606; 86612; 86635; 86671; 86698; 87040; 87070; 87205; 87449; 87633; 87899; 93005; 93010; 93306; 94640; 94760; C9113; J1650; J1815; J1956; J2930; J7620

== ENCOUNTER 2020-08-29 09:27 | Outpatient (CLI) | payer BC, MEDICARE ==
--- NOTE | 2020-08-29 10:07 | RAD ---
PORTABLE CHEST: Date: 08/29/2020 HISTORY: Shortness of breath. FINDINGS: Heart size is enlarged. Bilateral lung infiltrates are fairly similar to the previous exam given the differences in technique. Some of the right upper lobe parenchymal changes are slightly more prominen t, but this may largely be technique-related. IMPRESSION: Subtly more prominent lung markings. I am not certain whether this is a true increase in the infiltra moira or just related to differences in technique. POS: JOCELIN
== END 2020-08-29 09:28 | disposition home or self-care (01) ==
LOC: BICRAD 09:27
PROVIDERS: ATTEND Internal Medicine Critical Care Medicine
DX: R06.00 Dyspnea, unspecified (principal)
CPT/HCPCS: 71046

== ENCOUNTER 2021-01-08 09:48 | Outpatient (CLI) | payer BC, MEDICARE | END 2021-01-08 09:49 | disposition home or self-care (01) | LOC: BICRAD 09:48 | PROVIDERS: ATTEND Internal Medicine Critical Care Medicine | DX: R06.00 Dyspnea, unspecified (principal); I51.7 Cardiomegaly; J84.9 Interstitial pulmonary disease, unspecified | CPT/HCPCS: 71046 ==

== ENCOUNTER 2021-04-02 09:43 | Observation (INO) | payer BC, MEDICARE ==
[2021-04-02 10:50] LABS: ALT (SGPT) 20 U/L (8-55); AST (SGOT) 29 U/L (5-34); Albumin 3.4 g/dL (3.4-4.8); Alkaline Phosphatase 67 U/L (40-110); Anion Gap 11 mmol/L (10-20); BUN (Urea Nitrogen) 22 mg/dL (8.4-25.7); Bilirubin, Total 0.9 mg/dL (0.2-1.2); Calc. Creatinine Clearance 0 mL/min (70-130); Calcium 8.9 mg/dL (7.8-10.44); Carbon Dioxide 28 mmol/L (23-31); Chloride 102 mmol/L (98-107); Glucose 130 mg/dL (83-110); Potassium 3.6 mmol/L (3.5-5.1); Protein, Total 6.4 g/dL (5.8-8.1); Sodium 137 mmol/L (136-145)
[2021-04-02 11:07] LABS: Platelet Morphology Comment Appears Decreased; RBC Morphology Normal
[2021-04-02 11:08] LABS: #Eosinphils 0.2 thou/uL (0.0-0.7); #Lymphocytes 1.4 thou/uL (1.20-3.40); #Monocytes 0.6 thou/uL (0.11-0.59); #Neutrophils 2.5 thou/uL (1.40-6.50); %Basophils 0.3 % (0.0-1.0); %Eosinophils 4.6 % (0.0-10.0); %Lymphocytes 30.4 % (21.0-51.0); %Monocytes 11.7 % (0.0-10.0); %Neutrophils 53.1 % (42.0-75.0); Hemoglobin 12.1 g/dL (14.0-18.0); Mean Corpuscular HGB CONC 32.7 g/dL (32.0-36.0); Mean Corpuscular Hemoglobin 30.3 pg (27.0-31.0); Mean Corpuscular Volume 92.7 fL (78.0-98.0); Mean Platelet Volume 8.2 fL (7.4-10.4); Platelet Count 110 thou/uL (130-400); White Blood Cell (WBC) Count 4.7 thou/uL (4.8-10.8)
[2021-04-02] MEDS ORDERED: Aspirin Chewable 81 MG TAB ONE (11:35)
[2021-04-02] MEDS ORDERED: Acetaminophen 325 MG TAB PO PRN (11:42)
[2021-04-02] MEDS ORDERED: Guaifenesin DM 100-10/5 ML UDCUP PO PRN (11:42)
[2021-04-02] MEDS ORDERED: Ondansetron ODT 4 MG TAB PO PRN (11:42)
[2021-04-02] MEDS ORDERED: Dextrose 50% Abboject 50 ML SYRINGE SLOW IVP PRN (11:43)
[2021-04-02] MEDS ORDERED: Dextrose 5% in Water 1,000 ML IV PRN (11:43)
[2021-04-02] MEDS ORDERED: HumaLOG 300 UNITS/3 ML VIAL SC PRN ×2 (11:43)
[2021-04-02 12:21] LABS: INR-International Normal Ratio 1.1; PTT 44.4 sec (22.9-36.1); Prothrombin Time 14.2 sec (12.0-14.7)
[2021-04-02] MEDS ORDERED: Albuterol 200 PUFF (6.7GM INHALER) INH PRN (12:30)
[2021-04-02 17:25] VITALS: BMI 24.2
[2021-04-02 17:34] LABS: Bacteria/HPF None Seen HPF (None Seen); Bilirubin Negative (Negative); Blood, Urine Negative (Negative); Clarity Clear (Clear); Glucose, Urine (Dipstick) Normal (Negative); Ketone, Urine Negative (Negative); Leukocyte Negative Leu/uL (Negative); Nitrite Negative (Negative); Protein, Urine (Dipstick) Negative (Neg-Trace); RBC/HPF 0-3 HPF (0-3); Specific Gravity, Urine 1.016 (1.002-1.036); Squamous Epithelial None Seen HPF (0-3); Urobilinogen Normal mg/dL (Less than 2); WBC/HPF 0-3 HPF (0-3); pH, Urine 5.5 (5.0-9.0)
[2021-04-02 19:35] LABS: Troponin I Less than 0.010 ng/mL (< 0.028)
[2021-04-02] MEDS ORDERED: Rosuvastatin 20 MG TAB PO SCH (21:00)
[2021-04-02] MEDS: Famotidine 20 MG TAB PO SCH (21:02)
[2021-04-02 21:42] LABS: Troponin I Less than 0.010 ng/mL (< 0.028)
[2021-04-03 05:21] LABS: Cardiac Risk 4.6 (Less than 4.5)
[2021-04-03 05:45] LABS: Thyroid Stimulating Hormone 1.0699 uIU/mL (0.35-4.94)
[2021-04-03] MEDS ORDERED: Tamsulosin HCl 0.4 MG CAP PO SCH (09:00)
[2021-04-03] MEDS ORDERED: Losartan 25 MG TAB PO SCH (09:00)
[2021-04-03] MEDS ORDERED: Aspirin 81 mg Enteric Coated Tablet PO SCH (09:00)
[2021-04-03] MEDS ORDERED: Allopurinol 100 MG TAB PO SCH (09:00)
[2021-04-03 09:47] LABS: #Eosinphils 0.2 thou/uL (0.0-0.7); #Lymphocytes 1.5 thou/uL (1.20-3.40); #Monocytes 0.4 thou/uL (0.11-0.59); #Neutrophils 2.9 thou/uL (1.40-6.50); %Basophils 0.2 % (0.0-1.0); %Eosinophils 4.6 % (0.0-10.0); %Lymphocytes 28.7 % (21.0-51.0); %Monocytes 8.3 % (0.0-10.0); %Neutrophils 58.2 % (42.0-75.0); Hemoglobin 12.3 g/dL (14.0-18.0); Mean Corpuscular HGB CONC 34.5 g/dL (32.0-36.0); Mean Corpuscular Hemoglobin 31.8 pg (27.0-31.0); Mean Corpuscular Volume 92.1 fL (78.0-98.0); Platelet Count 133 thou/uL (130-400); RBC Distribution Width 11.7 % (11.5-14.5); Red Blood Cell (RBC) Count 3.87 mill/uL (4.70-6.10); White Blood Cell (WBC) Count 5.1 thou/uL (4.8-10.8)
[2021-04-03 10:08] LABS: Anion Gap 10 mmol/L (10-20); BUN (Urea Nitrogen) 16 mg/dL (8.4-25.7); Calc. Creatinine Clearance 71 mL/min (70-130); Carbon Dioxide 29 mmol/L (23-31); Chloride 103 mmol/L (98-107); Glucose 104 mg/dL (83-110); Potassium 3.4 mmol/L (3.5-5.1); Sodium 139 mmol/L (136-145)
[2021-04-03] MEDS: Famotidine 20 MG TAB PO SCH (11:32)
[2021-04-03 11:55] VITALS: TEMP 97.6
[2021-04-03 11:58] VITALS: BP 162/88
[2021-04-03 12:12] LABS: SARS-CoV-2 PCR by NAA Not Detected (NotDetected)
[2021-04-03] MEDS ORDERED: Potassium Chloride 20 MEQ TAB PO SCH (14:00)
[2021-04-03] MEDS ORDERED: FLU VACC QS2021-22(65YR UP)/PF 240 MCG/0.7 ML SYRINGE IM ONE (17:30)
[2021-04-03] MEDS ORDERED: Atorvastatin Calcium 40 MG TAB PO SCH (21:00)
[2021-04-03] MEDS ORDERED: Temazepam 15 MG CAP PO SCH (21:00)
== END 2021-04-03 14:53 | disposition home or self-care (01) ==
LOC: ERS 09:43 → INTOOBSV 12:04 → ERHOLD 12:04 → 2NO 16:55
PROVIDERS: ADMIT Internal Medicine; ATTEND Internal Medicine
DX: G45.9 Transient cerebral ischemic attack, unspecified (principal); I11.9 Hypertensive heart disease without heart failure; E11.9 Type 2 diabetes mellitus without complications; R05.3 Chronic cough; U09.9 Post COVID-19 condition, unspecified; I95.9 Hypotension, unspecified; N40.0 Benign prostatic hyperplasia without lower urinary tract symptoms; M10.9 Gout, unspecified; I08.3 Combined rheumatic disorders of mitral, aortic and tricuspid valves; Z79.82 Long term (current) use of aspirin; Z79.84 Long term (current) use of oral hypoglycemic drugs; Z79.899 Other long term (current) drug therapy; Z20.822 Contact with and (suspected) exposure to COVID-19
CPT/HCPCS: 36415; 36416; 70450; 70551; 71045; 80048; 80053; 80061; 81001; 82607; 82746; 84443; 84484; 85025; 85610; 85730; 93005; 93306; 93880; 95712; 95819; 95957; G0378; J1815; U0003; U0005

== ENCOUNTER 2021-04-10 10:55 | Outpatient (CLI) | payer BC, MEDICARE ==
[2021-04-10 14:32] LABS: SARS-CoV-2 NAA Rapid Test Not Detected (NotDetected)
== END 2021-04-10 10:56 | disposition home or self-care (01) ==
LOC: LABBT 10:55
PROVIDERS: ATTEND Family Medicine
DX: Z01.812 Encounter for preprocedural laboratory examination (principal); Z20.822 Contact with and (suspected) exposure to COVID-19
CPT/HCPCS: U0002

== ENCOUNTER 2021-04-11 10:45 | Outpatient (CLI) | payer BC, MEDICARE | END 2021-04-11 10:46 | disposition home or self-care (01) | PROVIDERS: ATTEND Internal Medicine | DX: R13.13 Dysphagia, pharyngeal phase (principal); R63.30 Feeding difficulties, unspecified | CPT/HCPCS: 74230 ==

== ENCOUNTER 2021-07-09 09:56 | Outpatient (CLI) | payer BC, MEDICARE | END 2021-07-09 09:57 | disposition home or self-care (01) | LOC: RAD 09:56 | PROVIDERS: ATTEND Internal Medicine Critical Care Medicine | DX: R06.00 Dyspnea, unspecified (principal); R91.8 Other nonspecific abnormal finding of lung field | CPT/HCPCS: 71046 ==

== ENCOUNTER 2021-07-23 14:00 | Outpatient (CLI) | payer BC, MEDICARE | END 2021-07-23 14:01 | disposition home or self-care (01) | LOC: RAD 14:00 | PROVIDERS: ATTEND Internal Medicine Critical Care Medicine | DX: R06.00 Dyspnea, unspecified (principal) | CPT/HCPCS: 71046 ==

== ENCOUNTER 2022-02-03 07:59 | Outpatient (CLI) | payer BC, MEDICARE | END 2022-02-03 08:00 | disposition home or self-care (01) | LOC: RAD 07:59 | PROVIDERS: ATTEND Internal Medicine Critical Care Medicine | DX: R06.00 Dyspnea, unspecified (principal); J84.10 Pulmonary fibrosis, unspecified | CPT/HCPCS: 71046 ==

== ENCOUNTER 2022-10-27 08:25 | Outpatient (CLI) | payer MEDICARE, BC | END 2022-10-27 08:26 | disposition home or self-care (01) | LOC: RAD 08:25 | PROVIDERS: ATTEND Internal Medicine Critical Care Medicine | DX: R06.00 Dyspnea, unspecified (principal) | CPT/HCPCS: 71046 ==

== ENCOUNTER 2023-06-11 13:36 | Outpatient (CLI) | payer BC, MEDICARE | END 2023-06-11 13:37 | disposition home or self-care (01) | LOC: RAD 13:36 | PROVIDERS: ATTEND Internal Medicine Critical Care Medicine | DX: R06.00 Dyspnea, unspecified (principal) | CPT/HCPCS: 71046 ==

== ENCOUNTER 2024-01-19 08:11 | Outpatient (CLI) | payer MEDICARE | END 2024-01-19 08:12 | disposition home or self-care (01) | LOC: RAD 08:11 | PROVIDERS: ATTEND Internal Medicine Critical Care Medicine | DX: R06.00 Dyspnea, unspecified (principal) | CPT/HCPCS: 71046 ==